=== PATIENT | female | born 1985 | race Caucasian/White ===

== ENCOUNTER 2018-12-16 11:13 | Observation (INO) | payer OTHER ==
[~2018-12-16] VITALS: Ht 165.1 cm; Wt 66.4 kg
[2018-12-16 11:20] VITALS: BP 118/72
--- NOTE | 2018-12-16 11:25 | NUR ---
PT TOOK TO L & D VIA WHEEL CHAIR PER [facility] NURSE.
[2018-12-16] MEDS ORDERED: [UNRECOGNIZED DRUG - CODE] PO (11:49)
[2018-12-16 11:54] VITALS: BP 111/67
== END 2018-12-16 13:25 | disposition home or self-care (01) ==
LOC: EDSTATUS 11:25 → MLD 11:30
PROVIDERS: ADMIT Obstetrics & Gynecology; ATTEND Obstetrics & Gynecology
DX: O26.892 Other specified pregnancy related conditions, second trimester (principal); R10.9 Unspecified abdominal pain; Z3A.27 27 weeks gestation of pregnancy
CPT/HCPCS: 81000; 99281; G0378

== ENCOUNTER 2019-01-27 14:08 | Emergency (ER) | payer OTHER ==
[~2019-01-27] VITALS: Ht 147.3 cm; Wt 68.3 kg
[~2019-01-27 14:08] MED LIST: [UNRECOGNIZED DRUG - CODE] PO
[2019-01-27 14:26] VITALS: BP 125/79
[2019-01-27] MEDS ORDERED: KETOROLAC 30 MG/ML VIAL IVP ONE (14:40)
[2019-01-27] MEDS ORDERED: METOCLOPRAMIDE 10 MG/2 ML INJ VIAL IVP ONE (14:40)
[2019-01-27 16:04] VITALS: BP 123/78
[2019-01-27 17:14] VITALS: BP 117/73
== END 2019-01-27 17:14 | disposition home or self-care (01) ==
LOC: MED 14:08 → UNDOADMOB 15:42 → MLD 15:42 → MED 17:14
DX: R51 Headache (principal); R22.0 Localized swelling, mass and lump, head; Z79.899 Other long term (current) drug therapy; Z88.6 Allergy status to analgesic agent; Z88.8 Allergy status to other drugs, medicaments and biological substances
CPT/HCPCS: 81000; 84703; 99283

== ENCOUNTER 2019-02-20 02:47 | Inpatient (IN) | payer OTHER ==
[~2019-02-20] VITALS: Ht 152.4 cm; Wt 68.9 kg
[2019-02-20] MEDS ORDERED: NALBUPHINE 10 MG/ML AMP IVP PRN (04:05)
[2019-02-20] MEDS ORDERED: AMPICILLIN 2,000 MG in NACL 0.9% MINI-BAG PLUS 100 ML IV SCH (04:05)
[2019-02-20] MEDS ORDERED: AMPICILLIN 2,000 MG VIAL ONE (04:11)
[2019-02-20 05:14] LABS: BILIRUBIN,URINE NEGATIVE (NEGATIVE); BLOOD, URINE 3+ (NEGATIVE); LEUKOCYTE ESTERASE ,URINE TRACE (NEGATIVE); NITRITE, URINE NEGATIVE (NEGATIVE); PH,URINE 7.5 (5.0-9.0); UGLUCOSE NEGATIVE (NEGATIVE)
[2019-02-20 05:21] VITALS: BP 127/74
[2019-02-20 05:32] LABS: ANION GAP 14.8 (8-16); CARBON DIOXIDE 26.3 mmol/L (21-32); CREATININE 0.6 mg/dL (0.6-1.3); POTASSIUM 4.1 mmol/L (3.5-5.1)
[2019-02-20 05:38] LABS: ALBUMIN 2.4 g/dL (3.4-5.0); TOTAL BILIRUBIN 0.3 mg/dL (0.0-1.0)
[2019-02-20 05:44] LABS: COLOR,URINE SLIGHT BLOODY (YELLOW); HEMATOCRIT 34.9 % (36-48); HEMOGLOBIN 11.7 g/dL (12.0-16.0); MEAN CORPUSCULAR HEMOGLOBIN 31 pg (27-31); MEAN CORPUSCULAR HGB CONC 34 g/dL (33-37); MEAN CORPUSCULAR VOLUME 92.4 fL (80-94); PLATELET COUNT (AUTO) 170 K/uL (140-450); RED BLOOD CELL COUNT(AUTO) 3.78 MIL/uL (4.20-5.40); RED CELL DISTRIBUTION WIDTH 13.6 % (11.6-13.7); WHITE BLOOD COUNT (AUTO) 5.4 K/uL (4.8-10.8)
[2019-02-20 05:45] LABS: APPEARANCE,URINE SLIGHTLY BLOODY (CLEAR)
[2019-02-20 05:46] LABS: RBC,URINE TOO NUMEROUS TO COUN /HPF (0-5)
[2019-02-20 05:47] LABS: TRICHOMONAS,URINE Few /HPF (None Seen); WBC,URINE 0-5 /HPF (0-5)
[2019-02-20] MEDS ORDERED: OXYTOCIN 20 UNITS in LACTATED RINGERS 1,000 ML IV SCH (06:30)
[2019-02-20 06:52] LABS: BASOPHILS % (MANUAL) 0 % (0-2); EOSINOPHILS % (MANUAL) 0 % (0-4); LYMPHOCYTES % (MANUAL) 36 % (20-46); MONOCYTES % (MANUAL) 10 % (5-12)
[2019-02-20] MEDS ORDERED: AMPICILLIN 1,000 MG in NACL 0.9% MINI-BAG PLUS 50 ML IV SCH (08:00)
[2019-02-20] MEDS ORDERED: AMPICILLIN 1,000 MG VIAL ONE (08:16)
[2019-02-20] MEDS: LACTATED RINGERS 1,000 ML IV SCH ×2 (12:12→20:10)
[2019-02-20] MEDS ORDERED: OXYTOCIN 20 UNITS/LR PREMIX 1,000 ML IV ONE (14:13)
[2019-02-20] MEDS ORDERED: LIDOCAINE 1% 500 MG/50 ML VIAL ONE (20:03)
[2019-02-20] MEDS ORDERED: METHYLERGONOVINE 0.2 MG/ML AMP ONE (20:49)
[2019-02-20] MEDS ORDERED: OXYTOCIN 10 UNITS/ML VIAL IM PRN (21:40)
[2019-02-20] MEDS ORDERED: METHYLERGONOVINE 0.2 MG TAB PO PRN (21:40)
[2019-02-20] MEDS ORDERED: METHYLERGONOVINE 0.2 MG/ML AMP IM PRN (21:40)
[2019-02-20] MEDS ORDERED: MEASLES, MUMPS, AND RUBELLA 1 VIAL SQVAC PRN (21:40)
[2019-02-20] MEDS ORDERED: BENZOCAINE/MENTHOL 20%-0.5% 60 GM CAN TP PRN (21:40)
[2019-02-21] MEDS: IBUPROFEN 800 MG TAB PO PRN (00:25)
[2019-02-21 07:24] LABS: HEMATOCRIT 28.9 % (36-48); HEMOGLOBIN 9.9 g/dL (12.0-16.0)
--- NOTE | 2019-02-21 08:24 | NUR ---
PATIENT HAS BEEN SCREENED AND CATEGORIZED LOW NUTRITION RISK. PATIENT WILL BE SEEN WITHIN 7 DAYS OF ADMISSION. 02/26/[address]
[2019-02-21 10:35] LABS: HEMATOCRIT 32.3 % (36-48); HEMOGLOBIN 10.7 g/dL (12.0-16.0); MEAN CORPUSCULAR HEMOGLOBIN 31 pg (27-31); MEAN CORPUSCULAR HGB CONC 33 g/dL (33-37); MEAN CORPUSCULAR VOLUME 93.2 fL (80-94); PLATELET COUNT (AUTO) 168 K/uL (140-450); RED BLOOD CELL COUNT(AUTO) 3.46 MIL/uL (4.20-5.40); RED CELL DISTRIBUTION WIDTH 13.8 % (11.6-13.7); WHITE BLOOD COUNT (AUTO) 11.1 K/uL (4.8-10.8)
[2019-02-21 10:55] LABS: CARBON DIOXIDE 24.9 mmol/L (21-32); POTASSIUM 3.6 mmol/L (3.5-5.1)
[2019-02-21 10:58] LABS: LYMPHOCYTES % (MANUAL) 20 % (20-46); MONOCYTES % (MANUAL) 5 % (5-12)
[2019-02-21 11:14] LABS: ANION GAP 12.7 (8-16); CREATININE 0.7 mg/dL (0.6-1.3)
[2019-02-21 11:18] LABS: ALBUMIN 2.4 g/dL (3.4-5.0); TOTAL BILIRUBIN 0.4 mg/dL (0.0-1.0)
[2019-02-21] MEDS ORDERED: fentaNYL 0.05 MG/ML VIAL ONE (14:32)
[2019-02-21] MEDS ORDERED: BUPIVACAINE-MPF 0.5% 30 ML VIAL INJ ONE (14:37)
[2019-02-21] MEDS ORDERED: ONDANSETRON 4 MG/2 ML VIAL IVP PRN (15:00)
[2019-02-21] MEDS ORDERED: HYDROmorphone PFS 2 MG/ML SYR IVP PRN (15:00)
[2019-02-21] MEDS ORDERED: oxyCODONE 5 MG TAB PO PRN (17:55)
[2019-02-21] MEDS ORDERED: DOCUSATE SOD/SENNA 50/8.6 MG 1 TAB PO SCH (21:00)
[2019-02-21] MEDS ORDERED: INFLUENZA VACCINE QUAD 0.5 ML SYR IMVAC PRN (21:40)
[2019-02-22] MEDS: IBUPROFEN 800 MG TAB PO PRN ×2 (00:14→06:05)
[2019-02-22] MEDS ORDERED: INFLUENZA VACCINE QUAD 0.5 ML SYR IMVAC PRN (05:20)
[2019-02-22] MEDS ORDERED: oxyCODONE 5 MG TAB PO PRN (08:00)
== END 2019-02-22 13:30 | disposition home or self-care (01) | DRG 541 ==
LOC: MLD 02:47 → OBSVTOIN 04:08 → MFCC 02-21 00:30
PROVIDERS: ADMIT Obstetrics & Gynecology; ATTEND Obstetrics & Gynecology
PROC: 10E0XZZ Delivery of Products of Conception, External Approach (ICD-10-PCS; principal; 2019-02-20)
PROC: 0HQ9XZZ Repair Perineum Skin, External Approach (ICD-10-PCS; 2019-02-20)
PROC: 3E02340 Introduction of Influenza Vaccine into Muscle, Percutaneous Approach (ICD-10-PCS; 2019-02-20)
PROC: 3E0234Z Introduction of Serum, Toxoid and Vaccine into Muscle, Percutaneous Approach (ICD-10-PCS; 2019-02-20)
PROC: 3E0134Z Introduction of Serum, Toxoid and Vaccine into Subcutaneous Tissue, Percutaneous Approach (ICD-10-PCS; 2019-02-20)
PROC: 0UB70ZZ Excision of Bilateral Fallopian Tubes, Open Approach (ICD-10-PCS; 2019-02-21)
DX: O99.354 Diseases of the nervous system complicating childbirth (principal); G40.909 Epilepsy, unspecified, not intractable, without status epilepticus; O70.0 First degree perineal laceration during delivery; Z23 Encounter for immunization; Z37.0 Single live birth; Z3A.37 37 weeks gestation of pregnancy; Z88.8 Allergy status to other drugs, medicaments and biological substances; Z30.2 Encounter for sterilization
CPT/HCPCS: 36415; 59409; 80053; 81001; 85018; 85025; 86592; 86886; 86900; 86901; 87653-90; 88302; 90707; 90715; G0378; J0290; J2001; J2210; J2590; J3010; J3490; J7030; J7120

== ENCOUNTER 2019-03-01 07:12 | Emergency (ER) | payer OTHER ==
[~2019-03-01] VITALS: Ht 152.4 cm; Wt 68.0 kg
--- NOTE | 2019-03-01 07:12 | NUR ---
Patient BIBA ALS, transferred to bed 10. RN evaluating patient at bedside.
[2019-03-01 07:17] VITALS: BP 131/93
--- NOTE | 2019-03-01 07:17 | NUR ---
PT BIBA C/O SZ EPISODE TODAY. SISTER AT [facility] AND SHE STATES SZ LASTED APPROX 3MIN. AIRWAY CLEAR AND PATENT. LUNG SOUNDS CLEAR ALL THROUGHOUT. PT HAS A SMALL BITE MATTEO ON HER TONGUE ON THE LEFT SIDE. NO RESP DISTRESS NOTED. PERRLA 3MM. PT DENIES ANY HEAD INJURY OR TRUAMA DURING SZ. A & O X 4. SZ PADS IN PLACE , BEDRAILS UP X2, BED IN LOW POISTION, SUCTION EQUIPMENT AVAILABE. PT SATTES SHE SHE HAS AN APPOINTMENT WITH HER PCP TOMORROW TO SEE IF SHE CAN GET A NEURO CONSULT FOR HER SZ. PT ALSO STATES SHE D/C HER SZ MEDS 9MONTHS AGO DO TO PREGENACY. BS 78. ALLERGIES: RED DYE. PMH: ANGEL.
--- NOTE | 2019-03-01 07:33 | NUR ---
Dr. Olson evaluating patient at bedside.
--- NOTE | 2019-03-01 08:31 | NUR ---
Dr. Olson evaluating patient at bedside.
[2019-03-01] MEDS ORDERED: levETIRAcetam 1,000 MG in NACL 0.9% 100 ML IV ONE (08:35)
[2019-03-01] MEDS ORDERED: levETIRAcetam 100 MG/ML VIAL IV ONE (08:41)
--- NOTE | 2019-03-01 09:41 | NUR ---
PT LAYING COMFORTABLY IN BED TALKING TO HER SISTER AT BEDSIDE. NO GRIMACING. NO RESP DISTRESS NOTED.
[2019-03-01] MEDS ORDERED: ACETAMINOPHEN 325 MG TAB PO ONE (10:15)
[2019-03-01 10:35] VITALS: BP 118/83
--- NOTE | 2019-03-01 10:35 | NUR ---
Patient discharged with v/s stable. Written and verbal after care instructions given and explained. Patient alert, oriented and verbalized understanding of instructions. Ambulatory with steady gait. All questions addressed prior to discharge. ID band removed. Patient advised to follow up with PMD. Rx of KEPRA given. Patient educated on indication of medication including possible reaction and side effects. Opportunity to ask questions provided and answered.
== END 2019-03-01 10:30 | disposition home or self-care (01) ==
LOC: MED 07:12
DX: R56.9 Unspecified convulsions (principal); Z79.899 Other long term (current) drug therapy; Z88.6 Allergy status to analgesic agent; Z88.8 Allergy status to other drugs, medicaments and biological substances; Z98.890 Other specified postprocedural states
CPT/HCPCS: 96365; 99283; J1953

== ENCOUNTER 2021-06-07 18:37 | Emergency (ER) | payer OTHER ==
[~2021-06-07] VITALS: Ht 149.9 cm; Wt 75.0 kg
[2021-06-07 19:53] VITALS: BP 127/78
--- NOTE | 2021-06-07 20:03 | NUR ---
PT IN LOBBY.
[2021-06-07] MEDS ORDERED: CYCL-711 PO (21:50)
[2021-06-07] MEDS ORDERED: LID5T TP (21:50)
[2021-06-07 22:40] VITALS: BP 127/78
--- NOTE | 2021-06-07 22:40 | NUR ---
Patient discharged with v/s stable. Written and verbal after care instructions given and explained. Patient alert, oriented and verbalized understanding of instructions. Ambulatory with steady gait. All questions addressed prior to discharge. ID band removed. Patient advised to follow up with PMD. Rx of FLEXERIL AND LIDODERM given. Patient educated on indication of medication including possible reaction and side effects. Opportunity to ask questions provided and answered.
== END 2021-06-07 22:40 | disposition home or self-care (01) ==
LOC: MED 18:37
DX: S06.0X9A Concussion with loss of consciousness of unspecified duration, initial encounter (principal); S16.1XXA Strain of muscle, fascia and tendon at neck level, initial encounter; S40.022A Contusion of left upper arm, initial encounter; M54.50 Low back pain, unspecified; E78.5 Hyperlipidemia, unspecified; Z88.6 Allergy status to analgesic agent; Z88.8 Allergy status to other drugs, medicaments and biological substances; Z79.899 Other long term (current) drug therapy; W01.0XXA Fall on same level from slipping, tripping and stumbling without subsequent striking against object, initial encounter; Y93.89 Activity, other specified; Y92.89 Other specified places as the place of occurrence of the external cause; Y99.8 Other external cause status
CPT/HCPCS: 73060; 73090; 99284